=== PATIENT | male | born 1940 | race Caucasian/White ===

== ENCOUNTER → 2016-11-28 | Outpatient (CLI) | payer MEDICARE, BC ==
[~2016-11-28] MED LIST: BUPIVACAINE MPF 0.25% 10 ML VIAL. ONE; LIDOCAINE 1% PF 30 ML VIAL. ONE; methylPREDNISolone ACETATE 40 MG/ML VIAL. ONE
== END | disposition home or self-care (01) ==
LOC: SURG 13:12
PROVIDERS: ATTEND Anesthesiology Pain Medicine
DX: M47.816 Spondylosis without myelopathy or radiculopathy, lumbar region (principal)
CPT/HCPCS: 64493; 64494; J1030; J2001; J3490

== ENCOUNTER → 2016-12-05 | Outpatient (CLI) | payer MEDICARE, BC ==
[~2016-12-05] MED LIST changes: +ATROPINE 1 MG/10 ML DISP.SYRIN ONE; +EPINEPHrine SYRINGE 1 MG/10 ML SYRINGE ONE; +FLUMAZENIL 0.5 MG/5 ML VIAL. IV ONE; +GLUCAGON,HUMAN RECOMBINANT 1 MG KIT. ONE; +IV NORMAL SALINE 250ML 250 ML ONE; +MIDAZOLAM HCL PF 2 MG/2 ML VIAL. ONE; +NALOXONE 0.4 MG/ML VIAL. ONE; +diphenhydrAMINE 50 MG/ML VIAL ONE
== END | disposition home or self-care (01) ==
LOC: SURG 11:02
PROVIDERS: ATTEND Anesthesiology Pain Medicine
DX: M47.816 Spondylosis without myelopathy or radiculopathy, lumbar region (principal); I10 Essential (primary) hypertension; M19.91 Primary osteoarthritis, unspecified site; Z72.89 Other problems related to lifestyle; Z72.0 Tobacco use
CPT/HCPCS: 64635; 64636; J1030; J2001; J2250; J3010; J3490; J7050; 64633; 64634; J0171; J0461; J1200; J1610; J2310

== ENCOUNTER → 2017-01-09 | Outpatient (CLI) | payer MEDICARE, BC ==
[~2017-01-09] MED LIST changes: -ATROPINE 1 MG/10 ML DISP.SYRIN ONE; -EPINEPHrine SYRINGE 1 MG/10 ML SYRINGE ONE; -FLUMAZENIL 0.5 MG/5 ML VIAL. IV ONE; -GLUCAGON,HUMAN RECOMBINANT 1 MG KIT. ONE; -IV NORMAL SALINE 250ML 250 ML ONE; -MIDAZOLAM HCL PF 2 MG/2 ML VIAL. ONE; -NALOXONE 0.4 MG/ML VIAL. ONE; -diphenhydrAMINE 50 MG/ML VIAL ONE
== END | disposition home or self-care (01) ==
LOC: SURG 13:33
PROVIDERS: ATTEND Anesthesiology Pain Medicine
DX: M47.816 Spondylosis without myelopathy or radiculopathy, lumbar region (principal); I10 Essential (primary) hypertension; M19.91 Primary osteoarthritis, unspecified site; Z72.0 Tobacco use; Z72.89 Other problems related to lifestyle
CPT/HCPCS: 64493; 64494; J1030; J2001; J3490

== ENCOUNTER → 2017-01-30 | Outpatient (CLI) | payer MEDICARE, BC | END | disposition home or self-care (01) | LOC: SURG 12:08 | PROVIDERS: ATTEND Anesthesiology Pain Medicine | DX: M47.816 Spondylosis without myelopathy or radiculopathy, lumbar region (principal); M54.16 Radiculopathy, lumbar region; M48.061 Spinal stenosis, lumbar region without neurogenic claudication; M46.00 Spinal enthesopathy, site unspecified | CPT/HCPCS: 99214 ==

== ENCOUNTER → 2017-03-10 | Outpatient (CLI) | payer MEDICARE, BC | END | disposition home or self-care (01) | LOC: SURG 13:55 | PROVIDERS: ATTEND Anesthesiology | DX: M47.816 Spondylosis without myelopathy or radiculopathy, lumbar region (principal); M79.1 Myalgia | CPT/HCPCS: 99214 ==

== ENCOUNTER → 2017-03-20 | Outpatient (CLI) | payer MEDICARE, BC ==
[~2017-03-20] MED LIST changes: +IV RINGERS SOLUTION,LACTATED 1,000 ML IV ONE; -LIDOCAINE 1% PF 30 ML VIAL. ONE; +MIDAZOLAM HCL PF 2 MG/2 ML VIAL. ONE
== END | disposition home or self-care (01) ==
LOC: SURG 07:34
PROVIDERS: ATTEND Anesthesiology Pain Medicine
DX: M47.816 Spondylosis without myelopathy or radiculopathy, lumbar region (principal); I10 Essential (primary) hypertension; M19.90 Unspecified osteoarthritis, unspecified site; Z96.643 Presence of artificial hip joint, bilateral; Z87.442 Personal history of urinary calculi
CPT/HCPCS: 64635; 64636; J1030; J3010; J3490; J7120; J2250

== ENCOUNTER → 2017-05-01 | Outpatient (CLI) | payer MEDICARE, BC ==
[~2017-05-01] MED LIST changes: -BUPIVACAINE MPF 0.25% 10 ML VIAL. ONE; +BUPIVACAINE MPF 0.5% 30 ML VIAL. ONE; -IV RINGERS SOLUTION,LACTATED 1,000 ML IV ONE; +LIDOCAINE 1% PF 30 ML VIAL. ONE; -MIDAZOLAM HCL PF 2 MG/2 ML VIAL. ONE; -methylPREDNISolone ACETATE 40 MG/ML VIAL. ONE; +methylPREDNISolone ACETATE 80 MG/ML VIAL. ONE
== END | disposition home or self-care (01) ==
LOC: SURG 13:09
PROVIDERS: ATTEND Anesthesiology Pain Medicine
DX: M17.12 Unilateral primary osteoarthritis, left knee (principal)
CPT/HCPCS: 20610; 77002; J1040; J2001; J3490

== ENCOUNTER → 2020-03-19 | Outpatient (CLI) | payer MEDICARE, BC ==
--- NOTE | 2020-03-19 10:05 | RAD ---
EXAM: Left hip, 2 views. HISTORY: Arthroplasty. Fall. COMPARISON: None. FINDINGS: 2 views of the left hip are obtained. There is a left hip arthroplasty in expected position . There is no evidence of arthroplasty loosening or periprosthetic fracture. There is degenerative ch elicia at the visualized lumbar levels and involving the sacroiliac joints. IMPRESSION: Left hip arthroplasty in expected position. Electronically signed by: Lorraine Estrada MD (03/19/2020 10:02 AM) [id number]
--- NOTE | 2020-03-19 10:06 | RAD ---
EXAM: Left knee, 4 views. HISTORY: Fall. Pain. COMPARISON: None. FINDINGS: 4 views left knee are obtained. There is medial compartment predominant tricompartmental alondra int space narrowing, subchondral sclerosis and spurring. There is medial and lateral compartment joaquin drocalcinosis. There is a moderate joint effusion. There are joint loose bodies. There are vascular c lips within the posterior medial knee soft tissues. 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 Electronically signed by: Lorraine Estrada MD (03/19/2020 10:03 AM) [id number]
== END ==
LOC: DXRAD 09:28
PROVIDERS: ATTEND Internal Medicine
DX: M17.12 Unilateral primary osteoarthritis, left knee (principal); M11.262 Other chondrocalcinosis, left knee; M25.462 Effusion, left knee; M25.552 Pain in left hip
CPT/HCPCS: 73502; 73564

== ENCOUNTER 2020-09-03 17:21 | Emergency (ER) | payer MEDICARE, BC ==
[~2020-09-03] VITALS: Ht 175.3 cm; Wt 83.6 kg
--- NOTE | 2020-09-03 17:55 | PHYS DOC ---
General Adult EDM: Chief Complaint: MECHANICAL FALL HPI: HPI: 80-year-old male presents after mechanical fall the golf course. The patient swung at the ball and lost his balance. He was up on the carmen box which is about 3 feet elevated from the rest of the course. He was unable to catch his balance and fell down off of the T box. He sustained skin tears to the left arm and abrasions and lacerations to the face. He denies loss of consciousness. He is on Eliquis. He tells me the pain is tolerable at this time. (KEVIN EASON DO) Review of Systems: Review of Systems: Constitutional: Denies fever or chills Eyes: Denies change in visual acuity HENT: Denies nasal congestion or sore throat Respiratory: Denies cough or shortness of breath Cardiovascular: Denies chest pain or edema GI: Denies abdominal pain, nausea, vomiting, bloody stools or diarrhea : Denies dysuria Musculoskeletal: Denies back pain or joint pain Integument: Skin tears, lacerations Neurologic: Denies headache, focal weakness or sensory changes Endocrine: Denies polyuria or polydipsia Lymphatic: Denies swollen glands Psychiatric: Denies depression or anxiety (KEVIN EASON DO) Physical Exam: PE: Constitutional: Well developed, well nourished, no acute distress, non-toxic appearance. [] HENT: Normocephalic, atraumatic, bilateral external ears normal, oropharynx moist, no oral exudates, nose normal. [] Eyes: PERRLA, EOMI, conjunctiva normal, no discharge. [] Neck: Normal range of motion, no tenderness, supple, no stridor. [] Cardiovascular:Heart rate regular rhythm, no murmur [] Lungs & Thorax: Bilateral breath sounds clear to auscultation [] Abdomen: Bowel sounds normal, soft, no tenderness, no masses, no pulsatile masses. [] Skin: 2.5 cm linear laceration of the forehead. 1 cm linear laceration of the bridge of the nose. Abrasions of the lower lip and face. Large skin tear of the left forearm. Small skin tear of the right forearm. [] Back: No tenderness, no CVA tenderness. [] Extremities: No tenderness, no cyanosis, no clubbing, ROM intact, no edema. [] Neurologic: Alert and oriented X 3, normal motor function, normal sensory function, no focal deficits noted. [] Psychologic: Affect normal, judgement normal, mood normal. [] (KEVIN EASON DO) EKG: EKG: [] (KEVIN EASON DO) Radiology/Procedures: Radiology/Procedures: [] (KEVIN EASON DO) Radiology/Procedures: 6 cm linear facial laceration beginning at left side of nasal bridge moving superiorly, superficial, hemostasis achieved. Wound cleaned with sterile water. L ET placed for topical anesthesia. Repaired with 8 sutures of 4-0 Ethilon successfully. Patient tolerated well. Washed wound again. Bandaged. (CHRISTIAN COHEN MD) Heart Score: C/O Chest Pain: N/A Risk Factors: Risk Factors: DM, Current or recent (<one month) smoker, HTN, HLP, family history of CAD, obesity. Risk Scores: Score 0 - 3: 2.5% MACE over next 6 weeks - Discharge Home Score 4 - 6: 20.3% MACE over next 6 weeks - Admit for Clinical Observation Score 7 - 10: 72.7% MACE over next 6 weeks - Early Invasive Strategies (KEVIN EAOSN DO) Course & Med Decision Making: Course & Med Decision Making Pertinent Labs and Imaging studies reviewed. (See chart for details) The patient's CT is pending. He is on Eliquis. He has a couple of lacerations that will require repair. I am signing the patient out to Dr. Cohen at 1800. [] (KEVIN EASON DO) Course & Med Decision Making Patient care handed off to me at checkout pending head CT. Head CT noted above and normal. Patient updated on tetanus for abrasions. Laceration repaired. Patient awake alert and oriented no acute distress. Vital signs not concerning. Patient able to sit, stand and walk without issue. Abrasions cleaned and dressed. Tetanus updated. Discussed all findings with patient advised to follow-up in the morning with primary care physician to discuss ED visit and set up a follow-up appointment as soon as possible in 5-7 days for wound checks and suture removal. Gave strict return precautions to the ED. Patient grateful, verbalized understanding and agreed with plan of disch arge. (CHRISTIAN COHEN MD) Dragon Disclaimer: Dragon Disclaimer: This electronic medical record was generated, in whole or in part, using a voice recognition dictation system. (KEVIN EASON DO) Departure Departure: Impression: Primary Impression: Fall from slip, trip, or stumble Additional Impressions: Skin tear Laceration Abrasion Disposition: 01 HOME / SELF CARE / HOMELESS Condition: GOOD Referrals: REGINALD URBAN MD (PCP) Patient Instructions: Facial Laceration, Sutured Wound Care Additional Instructions: Thank you for coming into the emergency department and allowing us to take care of you. Please read all of the attached information very carefully to go back over what we discussed. You can use Tylenol, and ice as needed for pain control. Please call your primary care physician first thing in the morning to update them on your ED visit and set up a wound check and suture removal in 5 to 7 days and discuss your ED visit. Please come back to the emergency department immediately with new or concerning symptoms as discussed. KEVIN EASON DO Sep 03, 2020 17:55 CHRISTIAN COHEN MD Sep 03, 2020 19:52
--- NOTE | 2020-09-03 18:35 | RAD ---
CT HEAD/BRAIN WO History: Reason: fall / Spl. Instructions: / History: . Pain Comparison: None. Technique: Noncontrast CT imaging was performed of the head. Exposure: One or more of the following individualized dose reduction techniques were utilized for thi s examination: 1. Automated exposure control 2. Adjustment of the mA and/or kV according to patient size 3. Use of iterative reconstruction technique. Findings: No intracranial hemorrhage. No mass effect. No hydrocephalus. Mild brain parenchymal volume loss. Mild foci of decreased attenuation within the hemispheric white m atter, most often due to chronic microvascular ischemia. Intracranial atheromatous calcifications. Imaged orbits are unremarkable. Imaged paranasal sinuses and mastoid air cells are clear. No acute ca lvarial fracture. Impression: 1. No acute intracranial abnormality. Electronically signed by: Quinn Albrecht DO (09/03/2020 6:32 PM) [facility]
[2020-09-03 18:52] LABS: BASO # 0.1 x10^3/uL (0.0-0.2); BASO % 1 % (0-3); EOS # 0.1 x10^3/uL (0.0-0.7); EOS % 3 % (0-3); HEMATOCRIT 38.3 % (39.0-53.0); LYMPH # 1.6 x10^3/uL (1.0-4.8); LYMPH % 31 % (24-48); MEAN CORPUSCULAR HEMOGLOBIN 35 pg (25-35); MEAN CORPUSCULAR HGB CONC 34 g/dL (31-37); MEAN CORPUSCULAR VOLUME 102 fL (79-100); MONO # 0.6 x10^3/uL (0.0-1.1); MONO % 12 % (0-9); NEUT # 2.7 x10^3uL (1.8-7.7); NEUT % 53 % (31-73); PLATELET COUNT 141 x10^3/uL (140-400); RED BLOOD COUNT 3.76 x10^6/uL (4.30-5.70); RED CELL DISTRIBUTION WIDTH 14.5 % (11.5-14.5); WHITE BLOOD COUNT 5.2 x10^3/uL (4.0-11.0)
[2020-09-03] MEDS ORDERED: LIDOCAINE/EPI/TETRACAINE TOPICAL GEL 3 ML. TP ONE (19:00)
[2020-09-03] MEDS ORDERED: DIPH,PERTUSS(ACELL),TET VAC/PF 0.5 ML SYRINGE. VAX IM ONE (19:00)
[2020-09-03 19:22] LABS: CREATININE 1.3 mg/dL (0.7-1.3); GFR 53.1; POTASSIUM 3.8 mmol/L (3.5-5.1)
[2020-09-03 19:31] LABS: ALBUMIN 4.1 g/dL (3.4-5.0); ALBUMIN/GLOBULIN RATIO 1.4 (1.0-1.7); TOTAL BILIRUBIN 0.4 mg/dL (0.2-1.0)
[2020-09-03 20:35] VITALS: BP 137/84
== END 2020-09-03 20:50 | disposition home or self-care (01) ==
LOC: ER 17:21
DX: S01.81XA Laceration without foreign body of other part of head, initial encounter (principal); S01.21XA Laceration without foreign body of nose, initial encounter; S51.812A Laceration without foreign body of left forearm, initial encounter; S51.811A Laceration without foreign body of right forearm, initial encounter; W01.0XXA Fall on same level from slipping, tripping and stumbling without subsequent striking against object, initial encounter; Y93.89 Activity, other specified; Y92.89 Other specified places as the place of occurrence of the external cause; Y99.8 Other external cause status
CPT/HCPCS: 12014; 36415; 70450; 80053; 85025; 90471; 90715; 99284